=== PATIENT | female | born 1995 | race Caucasian/White ===

== ENCOUNTER 2017-10-29 20:13 | Emergency (ER) | payer BC, OTHER ==
[~2017-10-29] VITALS: Ht 175.3 cm; Wt 86.9 kg
[~2017-10-29 20:13] MED LIST: ASPCH81X PO; KPP/750 PO; MULT-506 PO; [UNRECOGNIZED DRUG - CODE] PO
[2017-10-29] MEDS ORDERED: ONDANSETRON 4MG OD TAB PO STA (20:20)
[2017-10-29 20:28] VITALS: TEMP 36.7; O2SAT 100; Ht 175.3 cm; Wt 86.9 kg
[2017-10-29] MEDS ORDERED: LEVETIRACETAM IV 1,000 MG in DEXTROSE 5% 100ML 100 ML IV ONE (20:45)
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
[2017-10-29] MEDS ORDERED: ASPI81TA28 PO (20:59)
[2017-10-29] MEDS ORDERED: PROP1TAB PO (20:59)
[2017-10-29] MEDS ORDERED: MoRPHine SULFATE 4 MG/ML 1 ML CARP\\VIAL IV PRN (21:00)
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
[2017-10-29 21:19] LABS: BASO % 0.2 %; BASO ABS # 0.02 K/uL (0-0.2); EOS % 1.8 %; EOS ABS # 0.17 K/uL (0-0.5); HEMATOCRIT 41.4 % (37-47); HEMOGLOBIN 14.4 g/dL (12.0-16.0); IG# 0.06 K/uL (0.00-0.02); LYMPH % 22.3 %; LYMPH ABS # 2.12 K/uL (1.2-3.4); MEAN CELL VOLUME 91.8 fL (80-100); MEAN CORPUSCULAR HEMOGLOBIN 31.9 pg (25-34); MEAN CORPUSCULAR HGB CONC 34.8 g/dl (32-36); MEAN PLATELET VOLUME 9.9 fL (7.4-10.4); MONO % 7.6 %; MONO ABS # 0.72 K/uL (0.11-0.59); NEUT % 67.5 %; NEUT ABS # 6.43 K/uL (1.4-6.5); PLATELET COUNT 212 K/uL (130-400); RED CELL DISTRIBUTION WIDTH CV 13.4 % (11.5-14.5); RED CELL DISTRIBUTION WIDTH SD 44.3 fL (36.4-46.3); WHITE BLOOD COUNT 9.52 K/uL (4.8-10.8)
[2017-10-29 21:30] LABS: PTT PATIENT 27.8 SECONDS (21.0-31.0)
[2017-10-29] MEDS ORDERED: CEFAZOLIN IV 1,000 MG in DEXTROSE 5% 50ML 50 ML IV STA (21:33)
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
[2017-10-29 21:35] LABS: ALBUMIN 3.2 gm/dl (3.4-5.0); ALT/SGPT 26 U/L (12-78); BLOOD UREA NITROGEN 10 mg/dl (7-18); CALCIUM 8.5 mg/dl (8.5-10.1); CARBON DIOXIDE 24 mmol/L (21-32); CREATININE 0.63 mg/dl (0.60-1.20); GLUCOSE 112 mg/dl (70-99); LIPASE 136 U/L (73-393); POTASSIUM 4.5 mmol/L (3.5-5.1); SODIUM 139 mmol/L (136-145)
[2017-10-29 21:38] LABS: ALKALINE PHOSPHATASE 74 U/L (45-117); AST/SGOT 29 U/L (15-37); TOTAL PROTEIN 6.6 gm/dl (6.4-8.2)
[2017-10-29 22:02] VITALS: BP 117/76; PULSE 59; O2SAT 100
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
== END 2017-10-29 22:21 | disposition short-term general hospital (02) ==
LOC: EDBD 20:13 → C.EDB 20:14
DX: S06.6X0A Traumatic subarachnoid hemorrhage without loss of consciousness, initial encounter (principal); S02.0XXA Fracture of vault of skull, initial encounter for closed fracture; S02.40EA Zygomatic fracture, right side, initial encounter for closed fracture; S02.19XA Other fracture of base of skull, initial encounter for closed fracture; V03.10XA Pedestrian on foot injured in collision with car, pick-up truck or van in traffic accident, initial encounter; Y93.89 Activity, other specified; Y92.410 Unspecified street and highway as the place of occurrence of the external cause; G40.309 Generalized idiopathic epilepsy and epileptic syndromes, not intractable, without status epilepticus; Z79.82 Long term (current) use of aspirin; Z83.3 Family history of diabetes mellitus; Z80.9 Family history of malignant neoplasm, unspecified; Z82.49 Family history of ischemic heart disease and other diseases of the circulatory system; Z84.1 Family history of disorders of kidney and ureter